=== PATIENT | male | born 1980 | race Caucasian/White ===

== ENCOUNTER → 2019-07-02 | Outpatient (CLI) | payer MEDICAID ==
[2019-07-02 13:37] LABS: HEMATOCRIT 46.5 % (42.0-52.0); HEMOGLOBIN 15.2 g/dl (13.5-17.5); MEAN CORPUSCULAR HEMOGLOBIN 30.4 pg (27.0-33.0); MEAN CORPUSCULAR HGB CONC 32.7 g/dl (32.0-36.5); PLATELET COUNT, AUTOMATED 251 10^3/uL (150-450); WHITE BLOOD COUNT 9.5 10^3/uL (4.0-10.0)
[2019-07-02 14:04] LABS: ALBUMIN 4.1 GM/DL (3.2-5.2); ALT/SGPT 48 U/L (12-78); BILIRUBIN,TOTAL 0.5 MG/DL (0.2-1.0); BLOOD UREA NITROGEN 15 MG/DL (7-18); CALCIUM LEVEL 9.4 MG/DL (8.5-10.1); CARBON DIOXIDE LEVEL 33 MEQ/L (21-32); CHLORIDE LEVEL 102 MEQ/L (98-107); CREATININE FOR GFR 1.11 MG/DL (0.70-1.30); GLOMERULAR FILTRATION RATE > 60.0 (>60); GLUCOSE, FASTING 87 MG/DL (70-100); POTASSIUM SERUM 4.9 MEQ/L (3.5-5.1); SODIUM LEVEL 140 MEQ/L (136-145); TOTAL PROTEIN 8.4 GM/DL (6.4-8.2)
[2019-07-02 15:23] LABS: CHLAMYDIA DNA AMPLIFICATION NEGATIVE (NEGATIVE); GC DNA AMPLIFICATION NEGATIVE (NEGATIVE)
--- NOTE | 2019-07-02 19:14 | ECGEPIP ---
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
[2019-07-04 09:51] LABS: HEPATITIS B SURFACE ANTIGEN NEGATIVE (NEGATIVE)
[2019-07-04 11:35] LABS: HIV 1&2 SCREEN CENTAUR NEGATIVE (NEGATIVE)
[2019-07-04 11:36] LABS: HEPATITIS C VIRUS ABY INDEX > 11.0 INDEX (<0.8)
== END ==
LOC: M LAB 12:58
PROVIDERS: ATTEND Family Medicine
DX: F11.20 Opioid dependence, uncomplicated (principal)

== ENCOUNTER → 2019-07-02 | Outpatient (CLI) | payer MEDICAID ==
[2019-07-02 13:41] LABS: APPEARANCE, URINE CLEAR (CLEAR); BACTERIA, URINE AUTO NEGATIVE (NEGATIVE); BASO # 0.1 10^3/uL (0.0-0.2); BASO % 0.9 % (0.0-1.0); BILIRUBIN, URINE AUTO NEGATIVE (NEGATIVE); BLOOD, URINE BLOOD NEGATIVE (NEGATIVE); COLOR, URINE YELLOW (YELLOW); EOS # 0.5 10^3/uL (0.0-0.5); EOS % 5.5 % (0.0-3.0); GLUCOSE, URINE (UA) AUTO NEGATIVE (NEGATIVE); HEMATOCRIT 46.2 % (42.0-52.0); HEMOGLOBIN 15.2 g/dl (13.5-17.5); KETONE, URINE AUTO NEGATIVE (NEGATIVE); LEUKOCYTE ESTERASE, URINE AUTO NEGATIVE (NEGATIVE); LYMPH # 3.1 10^3/uL (1.5-5.0); LYMPH % 34.2 % (24.0-44.0); MEAN CORPUSCULAR HEMOGLOBIN 30.5 pg (27.0-33.0); MEAN CORPUSCULAR HGB CONC 32.9 g/dl (32.0-36.5); MEAN CORPUSCULAR VOLUME 92.8 fl (80.0-96.0); MONO # 0.8 10^3/uL (0.0-0.8); MONO % 8.9 % (0.0-5.0); MUCUS, URINE SMALL (NEGATIVE); NEUTROPHILS # 4.5 10^3/uL (1.5-8.5); NEUTROPHILS % 49.7 % (36.0-66.0); NITRITE, URINE AUTO NEGATIVE (NEGATIVE); PLATELET COUNT, AUTOMATED 250 10^3/uL (150-450); PROTEIN, URINE AUTO NEGATIVE (NEGATIVE); RBC, URINE AUTO 1 /HPF (0-3); RED BLOOD COUNT 4.98 10^6/uL (4.30-6.10); SPECIFIC GRAVITY URINE AUTO 1.012 (1.002-1.035); SQUAMOUS EPITHELIAL CELL UR AU 0 /HPF (0-6); UROBILINOGEN, URINE AUTO 0.2 mg/dL (0.0-2.0); WBC, URINE AUTO 1 /HPF (0-3); WHITE BLOOD COUNT 9.1 10^3/uL (4.0-10.0)
[2019-07-02 14:05] LABS: ALT/SGPT 45 U/L (12-78); BILIRUBIN,TOTAL 0.5 MG/DL (0.2-1.0); BLOOD UREA NITROGEN 16 MG/DL (7-18); CALCIUM LEVEL 9.4 MG/DL (8.5-10.1); CARBON DIOXIDE LEVEL 32 MEQ/L (21-32); CHLORIDE LEVEL 101 MEQ/L (98-107); CREATININE FOR GFR 1.11 MG/DL (0.70-1.30); GLOMERULAR FILTRATION RATE > 60.0 (>60); GLUCOSE, FASTING 85 MG/DL (70-100); POTASSIUM SERUM 4.6 MEQ/L (3.5-5.1); SODIUM LEVEL 139 MEQ/L (136-145); TOTAL PROTEIN 8.3 GM/DL (6.4-8.2)
[2019-07-04 09:35] LABS: HEPATITIS B SURFACE ANTIGEN NEGATIVE (NEGATIVE)
[2019-07-04 10:03] LABS: HEPATITIS B CORE ANTIBODY IGM NEGATIVE (NEGATIVE)
[2019-07-04 10:04] LABS: HEPATITIS A ANTIBODY IGM NEGATIVE (NEGATIVE)
[2019-07-04 10:08] LABS: HEPATITIS C VIRUS ABY INDEX > 11.0 INDEX (<0.8)
== END ==
LOC: M LAB 13:07
PROVIDERS: ATTEND Physician Assistant Medical
DX: Z02.2 Encounter for examination for admission to residential institution (principal)

== ENCOUNTER 2019-07-30 14:53 | Emergency (ER) | payer BC ==
[~2019-07-30] VITALS: Ht 180.3 cm; Wt 102.4 kg
[2019-07-30] MEDS ORDERED: DOXE75CA2 PO (15:11)
[2019-07-30] MEDS ORDERED: MAVY1TAB PO (15:11)
[2019-07-30] MEDS ORDERED: CITA20TA7 PO (15:11)
[2019-07-30] MEDS ORDERED: NICO1LOZ11 PO (15:11)
[2019-07-30] MEDS ORDERED: CLON-412 PO (15:11)
[2019-07-30] MEDS ORDERED: METH40TA3 PO (15:11)
[2019-07-30] MEDS ORDERED: QUET200T2 PO (15:11)
[2019-07-30] MEDS ORDERED: AMOX875T2 PO (15:11)
[2019-07-30 15:22] LABS: BASO # 0.1 10^3/uL (0.0-0.2); BASO % 0.9 % (0.0-1.0); EOS # 0.5 10^3/uL (0.0-0.5); EOS % 4.8 % (0.0-3.0); HEMATOCRIT 47.2 % (42.0-52.0); HEMOGLOBIN 15.6 g/dl (13.5-17.5); LYMPH # 4.2 10^3/uL (1.5-5.0); MEAN CORPUSCULAR HEMOGLOBIN 30.5 pg (27.0-33.0); MEAN CORPUSCULAR HGB CONC 33.1 g/dl (32.0-36.5); MEAN CORPUSCULAR VOLUME 92.4 fl (80.0-96.0); MONO # 0.9 10^3/uL (0.0-0.8); NEUTROPHILS # 4.3 10^3/uL (1.5-8.5); NEUTROPHILS % 42.2 % (36.0-66.0); PLATELET COUNT, AUTOMATED 319 10^3/uL (150-450); RED BLOOD COUNT 5.11 10^6/uL (4.30-6.10); WHITE BLOOD COUNT 10.1 10^3/uL (4.0-10.0)
--- NOTE | 2019-07-30 15:34 | REP ---
Portable chest, 03:21 p.m., single AP view: There are no comparisons. The lung del rosario are clear. The cardiac size is normal. The brenda, mediastinum, and skeletal structures are unremarkable. Impression: Negative portable chest. Electronically Signed by Carlos Conroy MD 07/30/2019 03:26 P
--- NOTE | 2019-07-30 15:38 | REP ---
CT of the brain without IV contrast: There are no comparisons. There is no hemorrhage. There is no edema, mass effect or midline shift. The cortical stripe is unremarkable. Ventricles are normal size. The visualized paranasal sinuses and mastoid air cells are clear. Impression: Essentially negative CT study of the brain. Electronically Signed by Carlos Conroy MD 07/30/2019 03:30 P
[2019-07-30 16:15] LABS: ACETAMINOPHEN LEVEL < 2.0 UG/ML (10.0-30.0); ALBUMIN 3.6 GM/DL (3.2-5.2); ALT/SGPT 18 U/L (12-78); BILIRUBIN,DIRECT < 0.1 MG/DL (0.0-0.2); BILIRUBIN,TOTAL 0.3 MG/DL (0.2-1.0); CK-MB VALUE MASS 1.7 NG/ML (<3.6); CPK CREATINE PHOSPHOKINASE 117 U/L (39-308); ETHYL ALCOHOL (ETHANOL) < 0.003 % (0.000-0.010); MB/CK RELATIVE INDEX 1.45 (< OR =4); SALICYLATE LEVEL 1.9 MG/DL (5.0-30.0); TOTAL PROTEIN 7.5 GM/DL (6.4-8.2); TROPONIN I < 0.02 NG/ML (< 0.10)
[2019-07-30] MEDS ORDERED: NS 1,000 ML IV ONE (16:45)
[2019-07-30 17:17] LABS: AMPHETAMINES LEVEL URINE NEGATIVE (NEGATIVE); BARBITURATES URINE NEGATIVE (NEGATIVE); BENZODIAZEPINES URINE NEGATIVE (NEGATIVE); CANNABINOIDS URINE NEGATIVE (NEGATIVE); COCAINE METABOLITE URINE NEGATIVE (NEGATIVE); METHADONE URINE POSITIVE (NEGATIVE); OPIATES URINE NEGATIVE (NEGATIVE); PHENCYCLIDINE URINE NEGATIVE (NEGATIVE)
[2019-07-30 18:29] VITALS: BP 149/91
--- NOTE | 2019-07-30 21:54 | ECGEPIP ---
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
== END 2019-07-30 18:58 | disposition home or self-care (01) ==
LOC: M ED 14:53
DX: F11.20 Opioid dependence, uncomplicated (principal); R00.0 Tachycardia, unspecified; Z86.19 Personal history of other infectious and parasitic diseases; F17.200 Nicotine dependence, unspecified, uncomplicated; Z79.899 Other long term (current) drug therapy
CPT/HCPCS: 70450; 71045; 80047; 80076; 80307; 81001; 82140; 82550; 82553; 83605; 84443; 85025; 87086; 93005; 93041; 94760; 96360; 96361; 99285; G0480

== ENCOUNTER 2019-07-31 05:44 | Emergency (ER) | payer BC ==
[~2019-07-31 05:44] MED LIST: AMOX875T2 PO; CITA20TA7 PO; CLON-412 PO; DOXE75CA2 PO; MAVY1TAB PO; METH40TA3 PO; NICO1LOZ11 PO; QUET200T2 PO
== END 2019-07-31 06:21 | disposition left against medical advice (07) ==
LOC: M ED 05:44
DX: Z53.21 Procedure and treatment not carried out due to patient leaving prior to being seen by health care provider (principal)

== ENCOUNTER 2019-08-02 19:42 | Inpatient (IN) | payer BC ==
[~2019-08-02] VITALS: Ht 182.9 cm; Wt 101.9 kg
[2019-08-02] MEDS ORDERED: LORazepam 2 MG/ML VIAL (J2060) IV STA ×2 (19:57→20:25)
[2019-08-02] MEDS ORDERED: ATROPINE SULF 1MG/10ML SYRINGE (J0461) As Ordered ONE (19:57)
[2019-08-02] MEDS ORDERED: ATROPINE SULF 0.4 MG/ML 1ML VIAL (J0461) IV STA (19:57)
[2019-08-02] MEDS ORDERED: LORazepam 2 MG/ML VIAL (J2060) As Ordered ONE (19:58)
[2019-08-02] MEDS ORDERED: ATROPINE SULF 0.4 MG/ML 1ML VIAL (J0461) As Ordered ONE (19:59)
[2019-08-02 20:20] LABS: HEMATOCRIT 44.4 % (42.0-52.0); HEMOGLOBIN 14.5 g/dl (13.5-17.5); MEAN CORPUSCULAR HEMOGLOBIN 30.7 pg (27.0-33.0); MEAN CORPUSCULAR HGB CONC 32.7 g/dl (32.0-36.5); MEAN CORPUSCULAR VOLUME 93.9 fl (80.0-96.0); PLATELET COUNT, AUTOMATED 302 10^3/uL (150-450); RED BLOOD COUNT 4.73 10^6/uL (4.30-6.10)
[2019-08-02 20:36] LABS: AMPHETAMINES LEVEL URINE NEGATIVE (NEGATIVE); BARBITURATES URINE NEGATIVE (NEGATIVE); BENZODIAZEPINES URINE NEGATIVE (NEGATIVE); CANNABINOIDS URINE NEGATIVE (NEGATIVE); COCAINE METABOLITE URINE NEGATIVE (NEGATIVE); METHADONE URINE POSITIVE (NEGATIVE); OPIATES URINE NEGATIVE (NEGATIVE); PHENCYCLIDINE URINE NEGATIVE (NEGATIVE)
[2019-08-02 20:42] LABS: ATYPICAL LYMPH 13 % (0-5); BASOPHILS 4 % (0-1); EOSINOPHILS 6 % (0-3); LYMPHOCYTES 33 % (16-44); MONOCYTES 7 % (0-5); NEUTROPHILS 37 % (28-66)
[2019-08-02 20:43] LABS: PLATELET CLUMPS SMALL AMT; PLATELET ESTIMATE NORMAL (NORMAL); TOXIC VACUOLATION 1+
[2019-08-02 20:56] LABS: ACETAMINOPHEN LEVEL < 2.0 UG/ML (10.0-30.0); ALBUMIN 4.1 GM/DL (3.2-5.2); ALT/SGPT 19 U/L (12-78); BILIRUBIN,DIRECT 0.1 MG/DL (0.0-0.2); BILIRUBIN,TOTAL 0.3 MG/DL (0.2-1.0); BLOOD UREA NITROGEN 15 MG/DL (7-18); CALCIUM LEVEL 8.8 MG/DL (8.5-10.1); CARBON DIOXIDE LEVEL 27 MEQ/L (21-32); CHLORIDE LEVEL 104 MEQ/L (98-107); CPK CREATINE PHOSPHOKINASE 107 U/L (39-308); CREATININE FOR GFR 1.04 MG/DL (0.70-1.30); ETHYL ALCOHOL (ETHANOL) < 0.003 % (0.000-0.010); GLOMERULAR FILTRATION RATE > 60.0 (>60); GLUCOSE, FASTING 100 MG/DL (70-100); POTASSIUM SERUM 3.8 MEQ/L (3.5-5.1); SODIUM LEVEL 139 MEQ/L (136-145)
[2019-08-02] MEDS ORDERED: NICOTINE 21MG/24HR 1 EA TRANSDERMAL TD ONE (23:15)
[2019-08-03] MEDS ORDERED: CLON-412 PO (01:31)
[2019-08-03] MEDS ORDERED: DOCU100C17 PO (01:31)
[2019-08-03] MEDS ORDERED: CLONI1TA PO (01:31)
[2019-08-03] MEDS ORDERED: SERO200T PO (01:31)
[2019-08-03] MEDS ORDERED: DOXE75CA2 PO (01:31)
[2019-08-03] MEDS ORDERED: CITA20TA6 PO (01:31)
[2019-08-03] MEDS ORDERED: [UNRECOGNIZED DRUG - OTHER] MT (01:31)
[2019-08-03] MEDS ORDERED: NS 1,000 ML IV ONE (02:30)
[2019-08-03] MEDS ORDERED: ENOXAPARIN 100MG/1ML SYRINGE (J1650) SC SCH (02:30)
--- NOTE | 2019-08-03 02:57 | HPEPDOC ---
[facility] Medical History & Physical Date of Admission Aug 03, 2019 Date of Service: Aug 03, 2019 Attending Physician: SHAHANA SMITH MD History and Physical CHIEF COMPLAINT: Drug overdose HISTORY OF PRESENT ILLNESS: is a 38-year-old male with past history of substance abuse on methadone, HCV on mavyret, anxiety, depression, and ADHD, who presented to the ED via EMS after he was found unresponsive at his men's community residence ([facility]). He received a dose of Narcan and subsequently awoke and became combative. EMS then administered IM ketamine and when he arrived in the ED, he received IV Ativan, and needed to be restrained. He then received a dose of atropine and a second dose of Ativan 30 minutes after the first. The ED contacted poison control for further recommendations, which were continued observation in the ED for 4 hours to assess patient's airway with subsequent 1224 hour inpatient observation for possible QTc prolongation due to methadone overdose. At time of admission, patient's last memory was sitting down to eat dinner on Thursday evening (08/02). He reports a history of recent hospital visits over the past month associated with his opioid dependence, including two since July 30. In terms of any recent changes to his medication regimen, patient reports he began taking doxepin 2 weeks ago. He does endorse an upper respiratory infection last week, that is since resolved. In the ED, patient was found to have leukocytosis with elevated alkaline phosphatase and TSH. Tox screen was positive for methadone. REVIEW OF SYSTEMS: CONSTITUTIONAL: Endorses upper respiratory illness last week; Denies fever, chills, night sweats HEENT: Denies dysphagia, odynophagia, visual disturbances, auditory disturbances, or rhinorrhea. CARDIOVASCULAR: Chest pain, chest pressure or palpitations. RESPIRATORY:. Denies shortness of breath. GASTROINTESTINAL: Endorses 34/10 lower abdominal pain that is dull and throbbing, states he feels hungry; denies feeling nauseated, vomiting, constipation, or diarrhea. GENITOURINARY: And eyes dysuria or hematuria. MUSCULOSKELETAL: Denies any specific muscle or joint pain NEUROLOGICAL: Endorses small headache; denies feeling dizzy, lightheadedness, syncope PAST MEDICAL HISTORY: Substance abuse, on methadone Hepatitis C virus, currently on mavyret Anxiety Depression ADHD DVT nasal septum History of IV drug abuse PAST SURGICAL HISTORY: None SOCIAL HISTORY: Currently lives at the [facility], a mens [facility], [facility] residence/skilled nursing house. Unmarried with a 15-year-old daughter who lives in [place]. Currently smokes roughly 3 cigarettes a day and is been using nicotine lozenges. He has smoked cigarettes for the last 23 years. Currently is prescribed methadone for history of opioid abuse and is part of a medication-assisted treatment program with Dr. Andreas Yeager and an pharmacist assistant named Luda at [facility]. FAMILY HISTORY: Effectively is noncontributory. Both parents living with no significant illnesses Daughter (15 years old) healthy ALLERGIES: Please see below. HOME MEDICATIONS: Please see below. PHYSICAL EXAMINATION: VITAL SIGNS: Temperature 98.8, heart rate 73, respiratory rate 16, blood pressure 127/77, 95% on 2L NC GENERAL APPEARANCE: male who appears somewhat tired but is able to maintain focus and answer questions appropriately throughout the exam. He is lying comfortably in bed. No acute distress. Well-developed, well-nourished., Alert and oriented 3. HEENT: Normocephalic, atraumatic. Anicteric and noninjected sclera. Bilateral pupils appear moderately dilated, yet her round and reactive to light and accommodation. Extraocular motion is intact. No pharyngeal erythema or exudate. No supraclavicular or cervical lymphadenopathy is palpable. Trachea is midline. CARDIOVASCULAR: Regular rate and regular rhythm. S1, S2 auscultated. No murmurs or rubs appreciated. LUNGS: Clear to auscultation bilaterally, anteriorly and posteriorly with no wheezes, rhonchi or crackles appreciated. Symmetric chest expansion. Breathing on 2 L nasal cannula and satting at 95%. Speaking in full sentences. No excessive muscle use ABDOMEN: Soft, nondistended with mild tenderness periumbilically. No guarding or rigidity appreciated. Normal bowel sounds are present. MUSCULOSKELETAL: 5/5 muscle strength UE & LE, b/l EXTREMITIES: 2+ radial and posterior tibial pulses. No lower extremity edema. There is scabbing over bilateral anterior shins. NEUROLOGICAL: Tired, but responsive, alert and oriented 3. Responds appropriately to questions and commands. Cranial nerves III through XII are grossly intact with intact cerebellar testing (finger to nose, heel to mcghee).. No focal neurological deficits appreciated. PSYCHIATRIC: Mood and affect appear appropriate. LABORATORY DATA: Please see below. IMAGING: Portable chest x-ray, 08/02/19: Trace basilar atelectasis with no obvious effusion, no pneumothorax, and intact skeletal structures. MICROBIOLOGY: Please see below. ASSESSMENT & PLAN: This is a 38-year-old male with history of substance abuse on methadone with IV drug use, HCV on mavyret, depression, anxiety, and ADHD, who presented via EMS after being found unresponsive at his skilled nursing house. He was subsequently admitted for overdose. #Methadone overdose -Is on methadone as outpatient through medication-assisted treatment facility ([facility], on [facility]) -Found unresponsive at his men's skilled nursing house this past evening -Urine methadone screen was positive -Received Narcan from EMS -Telemetry ordered to monitor for possible QTc prolongation secondary to methadone overdose -On aspiration precautions -Patient is currently NPO except for medications with IV fluids running. This will remain in effect until his level of alertness consistently improves. -PFS consult placed -Psych consult placed -All home medications being held due to potential interactions for QTc p rolongation #DVT prophylaxis: Lovenox SC DISPOSITION: Monitor for 12-24 hours for possible QTc prolongation with likely discharge to follow. Vital Signs Vital Signs Date Time Temp Pulse Resp B/P (MAP) Pulse Ox O2 Delivery O2 Flow Rate FiO2 08/03/19 02:30 73 16 127/77 (94) 96 Nasal Cannula 3.0 08/02/19 21:08 99.6 Laboratory Data Labs 24H Laboratory Tests 2 08/02/19 20:05: Urine Opiates Screen NEGATIVE, Urine Methadone Screen POSITIVEH, Urine Barbiturates Screen NEGATIVE, Urine Phencyclidine Screen NEGATIVE, Urine Amphetamines Screen NEGATIVE, Urine Benzodiazepines Screen NEGATIVE, Urine Cocaine Metabolite Screen NEGATIVE, Urine Cannabinoids Screen NEGATIVE 08/02/19 20:07: Lymphocytes # (Auto) , Nucleated Red Blood Cells % (auto) 0.0, Neutrophils 37, Lymphocytes (Manual) 33, Monocytes (Manual) 7H, Eosinophils (Manual) 6H, Basophils (Manual) 4H, Atypical Lymphocytes 13H, Toxic Vacuolation 1+, Platelet Estimate NORMAL, Clumped Platelets SMALL AMT, Anion Gap 8, Glomerular Filtration Rate > 60.0, Calcium Level 8.8, Total Bilirubin 0.3, Direct Bilirubin 0.1, Aspartate Amino Transf (AST/SGOT) 14, Alanine Aminotransferase (ALT/SGPT) 19, Alkaline Phosphatase 122H, Total Creatine Kinase 107, Total Protein 8.0, Albumin 4.1, Albumin/Globulin Ratio 1.05, Thyroid Stimulating Hormone (TSH) 8.570H, Salicylates Level 2.0L, Acetaminophen Level < 2.0L, Ethyl Alcohol Level < 0.003 08/02/19 23:51: Bedside Glucose (Misc Panel) 95 08/03/19 00:28: POC pH (Misc Panel) 7.432, POC Base Excess (Misc Panel) 4.0H, POC Saturated Per cent O2 (Misc) 97, POC pO2 (Misc Panel) 86.0, POC pCO2 (Misc Panel) 42.4, POC HCO3 (Misc Panel) 28.3H, POC Total CO2 (Misc Panel) 30.0H CBC/BMP Laboratory Tests 08/02/19 20:07 Home Medications Scheduled Citalopram Hydrobromide (Citalopram HBr) 20 Mg Tablet, 20 MG PO DAILY Clonidine HCl (Clonidine HCl) 0.1 Mg Tablet, 0.1 MG PO DAILY Clonidine Hcl (Clonidine HCl) 0.1 Mg Tablet, 0.2 MG PO QHS Docusate Sodium (Docusate Sodium) 100 Mg Capsule, 100 MG PO BID Doxepin HCl (Doxepin HCl) 75 Mg Capsule, 75 MG PO QHS Glecaprevir/Pibrentasvir (Mavyret 100-40 mg Tablet) 1 Each Tablet, 1 TAB PO QHS Levothyroxine Sodium (Levothyroxine Sodium) 25 Mcg Tablet, 25 MCG PO DAILY@06 Methadone HCl (Methadone HCl) 5 Mg/5 Ml Solution, 155 MG PO DAILY Quetiapine Fumarate (Seroquel) 200 Mg Tablet, 200 MG PO BID Scheduled PRN Nicotine Polacrilex (Nicotine Lozenge) 4 Mg Lozenge, 4 MG MT Q2H PRN for SMOKING CESSATION Allergies Coded Allergies: No Known Allergies (Unverified , 07/30/19) A-FIB/CHADSVASC A-FIB History Current/History of A-Fib/PAF?: No Current PO Anticoag Therapy: No (Lovenox SC for DVT prophylaxis) GME ATTESTATION GME ATTESTATION My faculty preceptor for this patient encounter was physically present during the encounter and was fully available. All aspects of the patient interview, examination, medical decision making process, and medical care plan development were reviewed and approved by the faculty preceptor. The faculty preceptor is aware and concurs with the plan as stated in the body of this note and will attest to such by his/her cosignature. ATTENDING NOTE TIME OF SERVICE 220AM Mr. Bernardo 38 M w polysubstance abuse admitted for obs post methadone OD . Rest per note. ILSA PICHARDO D.O. Aug 03, 2019 02:57 SHAHANA SMITH MD Aug 03, 2019 03:07
[2019-08-03 03:15] VITALS: BP 137/96
--- NOTE | 2019-08-03 03:22 | REP ---
Clinical: Cough. Comparison: 07/30/2019. Findings: Mediastinum and cardiac silhouette normal. Trace basilar atelectasis suggested. No focal consolidation. No obvious effusion. No pneumothorax. Skeletal structures intact. Impression: Trace basilar atelectasis. Electronically Signed by Aamir Cortés MD 08/03/2019 03:14 A
[2019-08-03 03:30] VITALS: O2SAT 95
[2019-08-03] MEDS ORDERED: LEVOTHYROXINE 25MCG TABLET (0.025MG) PO SCH (06:00)
[2019-08-03 07:40] VITALS: BP 133/92
[2019-08-03] MEDS ORDERED: METH5SOL PO (08:50)
[2019-08-03] MEDS ORDERED: DOCUSATE SODIUM 100 MG CAP PO SCH (09:00)
[2019-08-03] MEDS ORDERED: ENOXAPARIN 40 MG/0.4 ML SYRINGE (J1650) SC SCH (09:00)
[2019-08-03] MEDS ORDERED: LEVO25TA5 PO (09:53)
--- NOTE | 2019-08-03 13:07 | DS.PDOC ---
Discharge Summary General Date of Admission Aug 03, 2019 at 01:23 Date of Discharge 08/03/19 Primary Care Physician: A Discharge Summary PROCEDURES PERFORMED DURING STAY: None. ADMITTING DIAGNOSES: 1. Methadone overdose. DISCHARGE DIAGNOSES: 1. Methadone overdose, hypothyroidism, depression, anxiety, ADHD. COMPLICATIONS/CHIEF COMPLAINT: Overdose. HISTORY OF PRESENT ILLNESS: Chad is a 38-year-old male with past history of substance abuse on methadone, HCV on mavyret, anxiety, depression, and ADHD, who presented to the ED via EMS after he was found unresponsive at his men's community residence ([facility]). He received a dose of Narcan and subsequently awoke and became combative. EMS then administered IM ketamine and when he arrived in the ED, he received IV Ativan, and needed to be restrained. He then received a dose of atropine and a second dose of Ativan 30 minutes after the first. The ED contacted poison control for further recommendations, which were continued observation in the ED for 4 hours to assess patient's airway with subsequent 1224 hour inpatient observation for possible QTc prolongation due to methadone overdose. At time of admission, patient's last memory was sitting down to eat dinner on Thursday evening (08/02). He reports a history of recent hospital visits over the past month associated with his opioid dependence, including two since July 30. In terms of any recent changes to his medication regimen, patient reports he began taking doxepin 2 weeks ago. He does endorse an upper respiratory infection last week, that is since resolved. In the ED, patient was found to have leukocytosis with elevated alkaline phosphatase and TSH. Tox screen was positive for methadone. He was subsequently admitted under the care of the hospitalist team for observation.. HOSPITAL COURSE: Patient was admitted with methadone overdose, also with a history of hepatitis C, anxiety, depression and ADHD. Patient does not remember how he took overdose as he gets his methadone tablets at the methadone clinic and he denies taking any of the street medications. Patient also no 9. He is asymptomatic, tolerating oral feeding very well, in no apparent distress. We'll be discharged home on all his home medication as well as Synthroid 25 g by [facility] daily. 5. Hypothyroid. has been advised to follow with his methadone clinic as well as at PCP for hypothyroidism and repeat blood work.. DISCHARGE MEDICATIONS: Please see below. ALLERGIES: Please see below. PHYSICAL EXAMINATION ON DISCHARGE: VITAL SIGNS: Please see below. GENERAL: Within normal limits HEENT: , Rhea extraocular muscles intact NECK: Supple CARDIOVASCULAR EXAMINATION: S1, S2, regular RESPIRATORY EXAMINATION: Clear to A&P ABDOMINAL EXAMINATION: , Soft, nontender, bowel sounds present EXTREMITIES: No clubbing, cyanosis, edema SKIN: Normal NEUROLOGICAL EXAMINATION: . No focal motor sensory deficit PSYCHIATRIC EXAMINATION: None LABORATORY DATA: Please see below. IMAGING: Not applicable PROGNOSIS: Good ACTIVITY: As tolerated. DIET: As tolerated DISCHARGE PLAN: Follow with PCP and psych as outpatient DISPOSITION: . Home DISCHARGE INSTRUCTIONS: 1. As per discharge instruction. ITEMS TO FOLLOWUP ON ON OUTPATIENT: 1. Follow PCP as an outpatient. DISCHARGE CONDITION: Stable. TIME SPENT ON DISCHARGE: 28 minutes. Vital Signs/I&Os Vital Signs Date Time Temp Pulse Resp B/P (MAP) Pulse Ox O2 Delivery O2 Flow Rate FiO2 08/03/19 10:00 93 Room Air 08/03/19 07:59 2.0 08/03/19 07:40 97.2 80 18 133/92 (106) I&O- Last 24 Hours up to 6 AM 08/03/19 06:00 Intake Total 350 ml Output Total 30 ml Balance 320 ml Laboratory Data Labs 24H Laboratory Tests 2 08/02/19 20:05: Urine Opiates Screen NEGATIVE, Urine Methadone Screen POSITIVEH, Urine Barbiturates Screen NEGATIVE, Urine Phencyclidine Screen NEGATIVE, Urine Amphetamines Screen NEGATIVE, Urine Benzodiazepines Screen NEGATIVE, Urine Cocaine Metabolite Screen NEGATIVE, Urine Cannabinoids Screen NEGATIVE 08/02/19 20:07: Lymphocytes # (Auto) , Nucleated Red Blood Cells % (auto) 0.0, Neutrophils 37, Lymphocytes (Manual) 33, Monocytes (Manual) 7H, Eosinophils (Manual) 6H, Basophils (Manual) 4H, Atypical Lymphocytes 13H, Toxic Vacuolation 1+, Platelet Estimate NORMAL, Clumped Platelets SMALL AMT, Anion Gap 8, Glomerular Filtration Rate > 60.0, Calcium Level 8.8, Total Bilirubin 0.3, Direct Bilirubin 0.1, Aspartate Amino Transf (AST/SGOT) 14, Alanine Aminotransferase (ALT/SGPT) 19, Alkaline Phosphatase 122H, Total Creatine Kinase 107, Total Protein 8.0, Albumin 4.1, Albumin/Globulin Ratio 1.05, Thyroid Stimulating Hormone (TSH) 8.570H, Salicylates Level 2.0L, Acetaminophen Level < 2.0L, Ethyl Alcohol Level < 0.003 08/02/19 23:51: Bedside Glucose (Misc Panel) 95 08/03/19 00:28: POC pH (Misc Panel) 7.432, POC Base Excess (Misc Panel) 4.0H, POC Saturated Percent O2 (Misc) 97, POC pO2 (Misc Panel) 86.0, POC pCO2 (Misc Panel) 42.4, POC HCO3 (Misc Panel) 28.3H, POC Total CO2 (Misc Panel) 30.0H CBC/BMP Laboratory Tests 08/02/19 20:07 FSBS Laboratory Tests Test 08/02/19 23:51 Range/Units Bedside Glucose (Misc Panel) 95 70-105 MG/DL Discharge Medications Scheduled Citalopram Hydrobromide (Citalopram HBr) 20 Mg Tablet, 20 MG PO DAILY, (Reported) Clonidine HCl (Clonidine HCl) 0.1 Mg Tablet, 0.1 MG PO DAILY, (Reported) Clonidine Hcl (Clonidine HCl) 0.1 Mg Tablet, 0.2 MG PO QHS, (Reported) Docusate Sodium (Docusate Sodium) 100 Mg Capsule, 100 MG PO BID, (Reported) Doxepin HCl (Doxepin HCl) 75 Mg Capsule, 75 MG PO QHS, (Reported) Glecaprevir/Pibrentasvir (Mavyret 100-40 mg Tablet) 1 Each Tablet, 1 TAB PO QHS, (Reported) Levothyroxine Sodium (Levothyroxine Sodium) 25 Mcg Tablet, 25 MCG PO DAILY@06 Methadone HCl (Methadone HCl) 5 Mg/5 Ml Solution, 155 MG PO DAILY, (Reported) Quetiapine Fumarate (Seroquel) 200 Mg Tablet, 200 MG PO BID, (Reported) Scheduled PRN Nicotine Polacrilex (Nicotine Lozenge) 4 Mg Lozenge, 4 MG MT Q2H PRN for SMOKING CESSATION, (Reported) Allergies Coded Allergies: No Known Allergies (Unverified , 07/30/19) YUDI CASTLE MD Aug 03, 2019 13:07
--- NOTE | 2019-08-03 14:59 | ECGEPIP ---
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
--- NOTE | 2019-08-05 19:57 | ECGEPIP ---
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
== END 2019-08-03 13:00 | disposition home or self-care (01) | DRG 812 ==
LOC: M ED 19:42 → EDBD 19:42 → M ED INP 08-03 01:23 → ENRESERV 08-03 01:37 → M PCU 08-03 03:03
PROVIDERS: ADMIT Internal Medicine; ATTEND Internal Medicine
DX: T40.3X1A Poisoning by methadone, accidental (unintentional), initial encounter (principal); F11.20 Opioid dependence, uncomplicated; B19.20 Unspecified viral hepatitis C without hepatic coma; F41.9 Anxiety disorder, unspecified; F32.9 Major depressive disorder, single episode, unspecified; F90.9 Attention-deficit hyperactivity disorder, unspecified type; F17.210 Nicotine dependence, cigarettes, uncomplicated; E03.9 Hypothyroidism, unspecified; Z79.899 Other long term (current) drug therapy